=== PATIENT | male | born 1960 | race American Indian/Alaskan Native ===

== ENCOUNTER 2022-01-28 12:31 | Emergency (ER) | payer SELFPAY ==
--- NOTE | 2022-01-28 12:38 | Emergency Department Report ---
ED General Adult HPI - General Chief complaint: Altered Mental Status Stated complaint: ALTERED MENTAL STATUS Time Seen by Provider: 01/28/22 12:36 Source: patient, EMS (Verbal report received from emergency medical services. EMS documentation not available at time of chart dictation ), RN notes reviewed Mode of arrival: Stretcher Limitations: Altered Mental Status - History of Present Illness Initial comments: The patient was evaluated in the emergency department for symptoms described in the history of present illness. He/she was evaluated in the context of the global COVID-19 pandemic, which necessitated consideration that the patient might be at risk for infection with the virus that causes COVID-19. Institutional protocols and algorithms that pertain to the evaluation of patients at risk for COVID-19 are in a state of rapid change based on information released by regulatory bodies including the CDC and federal and state organizations. These policies and algorithms were followed during the patient's care in the emergency department. Please note that these policies, procedures and recommendations changed on a rapid basis. The patient is a 61-year-old gentleman with an unknown past medical history, who presents to the ER with EMS, with an EMS articulated complaint of altered mental status. EMS reports that they believe patient's last known well time is 10:00 AM. EMS reports normal Accu-Chek in the field, and unremarkable vital signs with exception of hypertension. They report that the patient is ambulatory with an unsteady gait. The patient is awake and follows commands. He is confused. He is not accompanied by friends or family at this time for collateral information or additional information. The patient is not able to describe the qualitative nature of his symptoms, exacerbating factors relieving factors or aggravating factors. The patient denies physical pain to myself -: This morning Severity scale (0 -10): 0 - Related Data Allergies Allergy/AdvReac Type Severity Reaction Status Date / Time No Known Allergies Allergy Unverified 01/28/22 12:33 ED Review of Systems ROS: Stated complaint: ALTERED MENTAL STATUS Other details as noted in HPI Comment: Unobtainable due to pts medical conditions ED Physical Exam - General Limitations: Altered Mental Status General appearance: alert, anxious, obese - Head Head exam: Present: atraumatic, normocephalic - Eye Eye exam: Present: normal appearance, PERRL, EOMI. Absent: nystagmus - ENT ENT exam: Present: normal exam, normal orophraynx, mucous membranes moist, normal external ear exam - Neck Neck exam: Present: normal inspection, full ROM. Absent: tenderness, meningismus - Respiratory Respiratory exam: Present: normal lung sounds bilaterally. Absent: respiratory distress, wheezes, rales, rhonchi, stridor, decreased breath sounds - Cardiovascular Cardiovascular Exam: Present: regular rate, normal rhythm, normal heart sounds. Absent: bradycardia, tachycardia, irregular rhythm, systolic murmur, diastolic murmur, rubs, gallop - GI/Abdominal GI/Abdominal exam: Present: soft. Absent: distended, tenderness, guarding, rebound, rigid, pulsatile mass - exam: Present: normal inspection External exam: Present: normal external exam - Extremities Exam Extremities exam: Present: normal inspection, full ROM, other (2+ pulses noted in the bilateral upper and lower extremities. There is no palpable cord. n egative Homans sign. Muscular compartments are soft. The pelvis is stable.). Absent: pedal edema, calf tenderness - Back Exam Back exam: Present: normal inspection. Absent: tenderness, CVA tenderness (R), CVA tenderness (L), paraspinal tenderness, vertebral tenderness - Neurological Exam Neurological exam: Present: altered (There is no facial droop. The tongue is midline. EOMI. Aphasic.), other (5 out of 5 strength bilateral upper extremities. 4 out of 5 strength bilateral lower extremities. Withdraws 4 extr emities in response to pinch and painful stimuli) - Psychiatric Psychiatric exam: Present: anxious - Skin Skin exam: Present: warm, dry, intact, normal color. Absent: rash ED Course Vital Signs 01/28/22 01/28/22 01/28/22 12:31 13:20 13:23 Temperature 98.5 F Pulse Rate 68 74 Respiratory 14 17 Rate Blood Pressure Blood Pressure 190/105 [Right] O2 Sat by Pulse 97 Oximetry O2 Sat by Pulse Oximetry [ Digit-Finger] 01/28/22 01/28/22 01/28/22 13:31 13:45 14:01 Temperature Pulse Rate 68 71 80 Respiratory 13 20 18 Rate Blood Pressure 197/99 189/95 179/90 Blood Pressure [Right] O2 Sat by Pulse 97 98 96 Oximetry O2 Sat by Pulse Oximetry [ Digit-Finger] 02/28/22 02/28/22 02/28/22 14:15 14:31 14:45 Temperature Pulse Rate 85 84 81 Respiratory 11 L 16 12 Rate Blood Pressure 123/66 134/68 143/73 Blood Pressure [Right] O2 Sat by Pulse 99 99 99 Oximetry O2 Sat by Pulse Oximetry [ Digit-Finger] 01/28/22 01/28/22 01/28/22 15:01 15:15 15:31 Temperature Pulse Rate 92 H 93 H 81 Respiratory 19 14 18 Rate Blood Pressure 142/70 127/76 121/74 Blood Pressure [Right] O2 Sat by Pulse 98 99 95 Oximetry O2 Sat by Pulse Oximetry [ Digit-Finger] 01/28/22 01/28/22 01/28/22 15:45 16:01 16:33 Temperature Pulse Rate 100 H 92 H Respiratory 19 18 Rate Blood Pressure 129/59 127/65 Blood Pressure [Right] O2 Sat by Pulse 96 97 Oximetry O2 Sat by Pulse 98 Oximetry [ Digit-Finger] - Reevaluation(s) Reevaluation #1: 01/28/22 13:17 Differential diagnosis, including not limited to: Stroke, ischemic versus hemorrhagic, pneumonia, UTI, thyroid derangement, electrolyte derangement, hypertensive emergency Assessment and plan: 61-year-old gentleman, with alteration in mental status, nonfocal weakness, found to have hypertensive emergency, with intracranial hemorrhage. The patient is not accompanied by friends or family at this time, so collateral information is limited. The patient is not a TPA candidate and TPA is contraindicated as he has an intracranial hemorrhage demonstrated on CT scan of the brain. Laboratory studies pending. I have transmitted CT scan to neurosurgeon on-call, Dr. Martins, to discuss the patient's case. If Dr. Martins/neurosurgery advises that this patient may be admitted here to this hospital, and he will be admitted to our ICU, under the care of our h ospitalist service, with critical care to follow in consultation. If the neurosurgeon advises transfer for services not available at this facility, we will reach out to our local tertiary care centers. Patient not certain if he takes any aspirin, antiplatelet therapy, or anticoagulants. Head of bed elevated, n.p.o., swallow screen, loaded with Keppra, start Cardene drip. 01/28/22 13:19 13 points Raymundo Coma Score E(4) V(3) M(6) [place] Coma Scale 01/28/22 13:42 Discussed the history, physical, CT scan findings and overall clinical impression with neurosurgeon on-call, Dr. Martins. He advises transfer for definitive services not available at this facility. Care team/guidance secretary to re ach out to [facility] center, so we may discuss with neurology critical care. I took verbal report from the interpreting radiologist on this patient's head CT. 01/28/22 14:05 Discussed the patient's history, physical, laboratory studies and imaging studies and clinical impression with neurology critical care weapons designer for [facility], Dr. Niki Montano He has accepted the patient as a transfer. He is in agreement with the plan of care. This patient has an emergent medical condition at this time which cannot be definitively managed at this hospital, as consulting neurosurgeon at our facility is recommending transfer. Furthermore, this facility does not possess the resources or ability to place EVD drain, should this patient decompensate. He will therefore be transferred to a tertiary care center. Patient is accompanied by significant other, but she is not to this patient. She does report that the patient is , but . The patient is not able to provide the phone number for his . His significant other is not able to provide phone number for . Patient has an emergency medical condition at this time which is time sensitive, and we are therefore administratively and emergently consenting this patient for transfer for definitive services not available at this facility At the moment, the patient is protecting his airway, in no acute distress, blood pressure improved on Cardene drip. The receiving neurology critical care physician advises that blood pressure systolic 140/150 mmHg would be acceptable 01/28/22 14:06 Reevaluation #2: 01/28/22 14:07 X-ray reviewed and appreciated. Patient not hypoxic. Antibiotics ordered empirically. Do not have the ability to perform rapid Covid testing at this facility. 01/28/22 15:10 Patient somewhat agitated. Midazolam ordered. Awaiting transportation he continues to protect his airway 01/28/22 15:54 Multiple phone calls were made by guidance secretary staff to multiple EMS ambulance units. Ambulances at this time are not available to transport this patient, secondary to not having available staff, or cars in the field. We will therefore order air transport, and guidance secretary reports that next available ambulance will present at 12:00 AM. Given time sensitive nature of this condition, and lack of available subspecialty services at this facility, lack of ability to definitively care for this patient, we will therefore transport patient as expediently as possible. 01/28/22 16:32 Patient received multiple doses of midazolam. Airflight is here to transport patient out, the patient agitated, pulling, not responding to de-escalation techniques. Flight nurse has requested intubation for airway protection. Patient is intubated by myself with 1 attempt, please see procedure note. There were no untoward complications. I updated the receiving neuro machine sand mixer. - Intubation Time Out Performed: Yes (Emergency situation) Sedative: Etomidate Mg Given: 20 Paralytic: Rocuronium (100 mg) Laryngoscope: fiberoptic video scope Size: 4 Assist Device Used: fiberoptic device ET Tube Size: 7.5 Tube Secured Depth (cm): 24 Tube Secured Location: lips Tube Placement Confirmation: visualized tube passing t, equal breath sounds bilat, no breath sounds over epi, confirmation by capnometr Patient Tolerated Procedure: well Intubation Complications: none - Pulse Oximetry Interpretation Digit-Finger Initial Pulse Oximetry Readin O2 Sat by Pulse Oximetry: 98 Actions Taken: none ED Medical Decision Making - Lab Data Result diagrams: 01/28/22 13:16 01/28/22 13:16 Vital Signs 01/28/22 12:31 Pulse Rate 68 Respiratory 14 Rate Blood Pressure 190/105 [Right] O2 Sat by Pulse 97 Oximetry Lab Results 01/28/22 01/28/22 Range/Units 12:39 13:16 WBC 7.1 (4.5-11.0) K/mm3 RBC 5.40 H (3.65-5.03) M/mm3 Hgb 15.5 H (11.8-15.2) gm/dl Hct 45.2 (35.5-45.6) % MCV 84 (84-94) fl MCH 29 (28-32) pg MCHC 34 (32-34) % RDW 13.2 (13.2-15.2) % Plt Count 190 (140-440) K/mm3 Lymph % (Auto) 10.3 L (13.4-35.0) % Coffee % (Auto) 4.6 (0.0-7.3) % Eos % (Auto) 0.3 (0.0-4.3) % Baso % (Auto) 0.7 (0.0-1.8) % Lymph # (Auto) 0.7 L (1.2-5.4) K/mm3 Coffee # (Auto) 0.3 (0.0-0.8) K/mm3 Eos # (Auto) 0.0 (0.0-0.4) K/mm3 Baso # (Auto) 0.1 (0.0-0.1) K/mm3 Seg Neutrophils % 84.1 H (40.0-70.0) % Seg Neutrophils # 6.0 (1.8-7.7) K/mm3 POC Glucose 109 H (70-105) mg/dL Lab Results 01/28/22 01/28/22 01/28/22 Range/Units 12:39 13:16 13:16 WBC 7.1 (4.5-11.0) K/mm3 RBC 5.40 H (3.65-5.03) M/mm3 Hgb 15.5 H (11.8-15.2) gm/dl Hct 45.2 (35.5-45.6) % MCV 84 (84-94) fl MCH 29 (28-32) pg MCHC 34 (32-34) % RDW 13.2 (13.2-15.2) % Plt Count 190 (140-440) K/mm3 Lymph % (Auto) 10.3 L (13.4-35.0) % Coffee % (Auto) 4.6 (0.0-7.3) % Eos % (Auto) 0.3 (0.0-4.3) % Baso % (Auto) 0.7 (0.0-1.8) % Lymph # (Auto) 0.7 L (1.2-5.4) K/mm3 Coffee # (Auto) 0.3 (0.0-0.8) K/mm3 Eos # (Auto) 0.0 (0.0-0.4) K/mm3 Baso # (Auto) 0.1 (0.0-0.1) K/mm3 Seg Neutrophils % 84.1 H (40.0-70.0) % Seg Neutrophils # 6.0 (1.8-7.7) K/mm3 PT 13.8 (12.2-14.9) Sec. INR 0.96 (0.87-1.13) APTT 34.8 (24.2-36.6) Sec. Thrombin Time 15.9 (15.1-19.6) Sec. Sodium (137-145) mmol/L Potassium (3.6-5.0) mmol/L Chloride (98-107) mmol/L Carbon Dioxide (22-30) mmol/L Anion Gap mmol/L BUN (9-20) mg/dL Creatinine (0.8-1.3) mg/dL Estimated GFR ml/min BUN/Creatinine Ratio % Glucose (75-100) mg/dL POC Glucose 109 H (70-105) mg/dL Lactic Acid (0.7-2.0) mmol/L Calcium (8.4-10.2) mg/dL Total Bilirubin (0.1-1.2) mg/dL AST (5-40) units/L ALT (7-56) units/L Alkaline Phosphatase (35-129) units/L Total Creatine Kinase (55-170) units/L CK-MB (CK-2) (0.0-4.0) ng/mL CK-MB (CK-2) Rel Index (0-4) Troponin T (0.00-0.029) ng/mL Total Protein (6.3-8.2) g/dL Albumin (3.9-5) g/dL Albumin/Globulin Ratio % TSH (0.270-4.200) mlU/mL Salicylates (2.8-20.0) mg/dL Acetaminophen (10.0-30.0) ug/mL Plasma/Serum Alcohol (0-0.07) % 01/28/22 01/28/22 01/28/22 Range/Units 13:16 13:16 13:16 WBC (4.5-11.0) K/mm3 RBC (3.65-5.03) M/mm3 Hgb (11.8-15.2) gm/dl Hct (35.5-45.6) % MCV (84-94) fl MCH (28-32) pg MCHC (32-34) % RDW (13.2-15.2) % Plt Count (140-440) K/mm3 Lymph % (Auto) (13.4-35.0) % Coffee % (Auto) (0.0-7.3) % Eos % (Auto) (0.0-4.3) % Baso % (Auto) (0.0-1.8) % Lymph # (Auto) (1.2-5.4) K/mm3 Coffee # (Auto) (0.0-0.8) K/mm3 Eos # (Auto) (0.0-0.4) K/mm3 Baso # (Auto) (0.0-0.1) K/mm3 Seg Neutrophils % (40.0-70.0) % Seg Neutrophils # (1.8-7.7) K/mm3 PT (12.2-14.9) Sec. INR (0.87-1.13) APTT (24.2-36.6) Sec. Thrombin Time (15.1-19.6) Sec. Sodium 138 (137-145) mmol/L Potassium 3.7 (3.6-5.0) mmol/L Chloride 98.5 (98-107) mmol/L Carbon Dioxide 26 (22-30) mmol/L Anion Gap 17 mmol/L BUN 13 (9-20) mg/dL Creatinine 1.0 (0.8-1.3) mg/dL Estimated GFR > 60 ml/min BUN/Creatinine Ratio 13 % Glucose 120 H (75-100) mg/dL POC Glucose (70-105) mg/dL Lactic Acid 1.30 (0.7-2.0) mmol/L Calcium 9.9 (8.4-10.2) mg/dL Total Bilirubin 0.40 (0.1-1.2) mg/dL AST 16 (5-40) units/L ALT 15 (7-56) units/L Alkaline Phosphatase 128 (35-129) units/L Total Creatine Kinase 194 H (55-170) units/L CK-MB (CK-2) 5.1 H (0.0-4.0) ng/mL CK-MB (CK-2) Rel Index 2.6 (0-4) Troponin T < 0.010 (0.00-0.029) ng/mL Total Protein 8.4 H (6.3-8.2) g/dL Albumin 4.5 (3.9-5) g/dL Albumin/Globulin Ratio 1.2 % TSH 0.282 (0.270-4.200) mlU/mL Salicylates (2.8-20.0) mg/dL Acetaminophen (10.0-30.0) ug/mL Plasma/Serum Alcohol (0-0.07) % 01/28/22 01/28/22 01/28/22 Range/Units 13:16 13:16 13:16 WBC (4.5-11.0) K/mm3 RBC (3.65-5.03) M/mm3 Hgb (11.8-15.2) gm/dl Hct (35.5-45.6) % MCV (84-94) fl MCH (28-32) pg MCHC (32-34) % RDW (13.2-15.2) % Plt Count (140-440) K/mm3 Lymph % (Auto) (13.4-35.0) % Coffee % (Auto) (0.0-7.3) % Eos % (Auto) (0.0-4.3) % Baso % (Auto) (0.0-1.8) % Lymph # (Auto) (1.2-5.4) K/mm3 Coffee # (Auto) (0.0-0.8) K/mm3 Eos # (Auto) (0.0-0.4) K/mm3 Baso # (Auto) (0.0-0.1) K/mm3 Seg Neutrophils % (40.0-70.0) % Seg Neutrophils # (1.8-7.7) K/mm3 PT (12.2-14.9) Sec. INR (0.87-1.13) APTT (24.2-36.6) Sec. Thrombin Time (15.1-19.6) Sec. Sodium (137-145) mmol/L Potassium (3.6-5.0) mmol/L Chloride (98-107) mmol/L Carbon Dioxide (22-30) mmol/L Anion Gap mmol/L BUN (9-20) mg/dL Creatinine (0.8-1.3) mg/dL Estimated GFR ml/min BUN/Creatinine Ratio % Glucose (75-100) mg/dL POC Glucose (70-105) mg/dL Lactic Acid (0.7-2.0) mmol/L Calcium (8.4-10.2) mg/dL Total Bilirubin (0.1-1.2) mg/dL AST (5-40) units/L ALT (7-56) units/L Alkaline Phosphatase (35-129) units/L Total Creatine Kinase (55-170) units/L CK-MB (CK-2) (0.0-4.0) ng/mL CK-MB (CK-2) Rel Index (0-4) Troponin T (0.00-0.029) ng/mL Total Protein (6.3-8.2) g/dL Albumin (3.9-5) g/dL Albumin/Globulin Ratio % TSH (0.270-4.200) mlU/mL Salicylates 1.3 L (2.8-20.0) mg/dL Acetaminophen 5.0 L (10.0-30.0) ug/mL Plasma/Serum Alcohol < 0.01 (0-0.07) % - Radiology Data Radiology results: report reviewed, image reviewed interpreted by me: Noncontrast CT scan of the brain hemorrhage ICH, left temporal region (6.5x4x3.5 cm) . CT head/brain wo con INDICATION / CLINICAL INFORMATION: 61 years Male; Stroke symptoms. TECHNIQUE: Routine CT head without contrast. All CT scans at this location are performed using CT dose reduction for ALARA by means of automated exposure control. COMPARISON: None. FINDINGS: BRAIN / INTRACRANIAL CONTENTS: Large area of parenchymal hemorrhage in the right temporal lobe, measuring approximately 7 cm AP by 3.9 cm transversely by 2.9 cm craniocaudally. Mixed areas of hemorrhage seen with more acute blood products suggested anteriorly. There is mild subdural extension on the left, which extends towards the sylvian fissure and along the tentorium cerebelli. Some component of surrounding vasogenic edema noted. These findings result in approximately 6 mm of [id number] midline shift at the level of the septum pellucidum and the frontal horns of the lateral ventricles. There is mass effect on the temporal horn of the left lateral ventricle. Basal cisterns remain well-visualized, although the uncus on the left projects minimally into the suprasellar cistern. Otherwise, no acute hemorrhage, hydrocephalus, or acute, large territorial infarct. No signs of significant atrophy or chronic infarct. No significant white matter abnormality seen. CRANIOCERVICAL JUNCTION: No significant abnormality. ORBITS: No significant abnormality of visualized orbits. SINUSES / MASTOIDS: Mucous retention cyst seen in the left maxillary antrum. ADDITIONAL FINDINGS: None. I MPRESSION: 1. Large parenchymal hemorrhage in the left temporal lobe as described above, with minimal extension into the subdural space on the left. CRITICAL RESULT: Exam Completed (DISTRIBUTION FIELD ENGINEER/CDT): 01/28/2022 1227 PM Exam Reviewed (DISTRIBUTION FIELD ENGINEER/CDT): 12:27 PM Time of Communication (DISTRIBUTION FIELD ENGINEER/CDT): 12:35 PM Licensed Practitioner Receiving Report: Dr. Larry Information confirmed: Yes. ==== Signer Name: Jean-Pierre Bingham MD, III Signed: 01/28/2022 12:42 PM Workstation Name: [id number] CHEST 1 VIEW INDICATION / CLINICAL INFORMATION: ams. COMPARISON: None available. FINDINGS: SUPPORT DEVICES: None. HEART / MEDIASTINUM: No significant abnormality. LUNGS / PLEURA: Patchy perihilar and bibasilar airspace opacities. No focal consolidation. No significant effusion. No pneumothorax. ADDITIONAL FINDINGS: No significant additional findings. IMPRESSION: 1. Perihilar and bibasilar airspace disease, suggesting multifocal pneumonia. Signer Name: Ricardo Ivy MD Signed: 01/28/2022 12:46 PM Workstation Name: [id number] vCT angio head INDICATION / CLINICAL INFORMATION: 61 years Male; stroke sx. TECHNIQUE: Thin cut axial images obtained through the head during IV bolus contrast administration. Sagittal, coronal, and 3 plane MIP reconstructions performed by the technologist. NASCET type criteria used evaluate stenoses. Automated exposure control utilized for radiation reduction purposes. . COMPARISON: CT head-01/28/2022. FINDINGS: INTERNAL CAROTID ARTERIES: No significant narrowing appreciated. VERTEBROBASILAR SYSTEM: No significant narrowing appreciated. DISTAL BRANCHES: Distal branches of the anterior posterior cerebral arteries are fairly symmetric in appearance and number. Large hematoma is seen in the left temporal lobe, described on report from today's CT of the head. No definitive signs of underlying cause for patient's parenchymal hemorrhage appreciated. No definitive signs of vessel occlusion. Certainly, mass effect from the hemorrhage could cause obscuration of an underlying lesion or small vascular malformation. Short-term follow-up exam may be of benefit. Right MCA territory is normal in appearance. ANEURYSM: None identified. ADDITIONAL FINDINGS: Remainder of the surrounding soft tissues are grossly normal. IMPRESSION: No significant narrowing or lesion appreciated on this CTA of the head. Signer Name: Jean-Pierre Bingham MD, III Signed: 01/28/2022 12:50 PM Workstation Name: [id number] CT angio neck INDICATION / CLINICAL INFORMATION: 61 years Male; stroke sx. TECHNIQUE: Thin cut axial images obtained through the head during IV bolus contrast administration. Sagittal, coronal, and 3 plane MIP reconstructions performed by the technologist. NASCET type criteria used evaluate stenoses. All CT scans at this location are performed using CT dose reduction for ALARA by means of automated exposure control. . COMPARISON: None available. FINDINGS: ARCH: Bovine arch configuration noted. CAROTID ARTERIES: The visualized common and internal carotid arteries are widely patent. Minimal atherosclerotic disease noted. VERTEBRAL ARTERIES: Slight right dominant vertebral system seen. No significant stenosis appreciated. ADDITIONAL FINDINGS: Disc space narrowing seen at C5-6 and C6-7. There is minimal scoliosis of the cervicothoracic region, which may be related to patient positioning. Moderate osseous foraminal narrowing is seen on the left at C5-6 and C6-7 from uncinate hypertrophy. Minimal disc disease seen at various levels. No definitive signs of significant canal stenosis appreciated. Large mucous retention cyst/polyp seen in the left maxillary antrum. IMPRESSION: No significant stenosis appreciated on this CTA of the neck. Signer Name: Jean-Pierre Bingham MD, III Signed: 01/28/2022 12:54 PM Workstation Name: [id number] CHEST 1 VIEW 01/28/2022 4:27 PM INDICATION / CLINICAL INFORMATION: ETT placement. COMPARISON: 01/08/22 1:32 PM FINDINGS: SUPPORT DEVICES: Endotracheal tube has been placed with the tip 5.7 cm above the keily. HEART / MEDIASTINUM: Stable. Bilateral hilar fullness could relate to pulmonary arterial enlargement. LUNGS / PLEURA: Mild perihilar opacities are unchanged. No pneumothorax. ADDITIONAL FINDINGS: No significant additional findings. IMPRESSION: 1. Endotracheal tube in expected position. Signer Name: Ez Cornejo MD Signed: 01/28/2022 3:44 PM Workstation Name: [facility] Critical Care Time: Yes Critical care time in (mins) excluding proc time.: 74 Critical care attestation.: If time is entered above; I have spent that time in minutes in the direct care of this critically ill patient, excluding procedure time. ED Disposition Clinical Impression: Intracranial hemorrhage, Acute encephalopathy, Hypertensive emergency, Pulmonary infiltrate Disposition: 02 SHORT TERM HOSPITAL Is pt being admited?: No Does the pt Need Aspirin: No Condition: Critical Instructions: Hypertension (ED) Referrals: PRIMARY CARE, [Primary Care Provider] - 3-5 Days
--- NOTE | 2022-01-28 13:10 | Consultation ---
History of Present Illness History of present illness: [facility] Consult Note # Demographics Consult Type: Acute Stroke Level 1 (0-4.5 hrs) Patient Location: Emergency Room First Name: Marco Antonio Last Name: Johnnie Date of : 1960 Age: 61 Gender: Male Facility: [facility] Time of Initial Page ( Time): 01/28/2022, 12:38 Time of Return Call ( Time): 01/28/2022, 12:50 # HPI Chief Complaint: altered mental state History: 61M presents with AMS. 190/105. Fingerstick 109. LKWT 10 AM # Scores Time of exam and NIHSS (): 01/28/2022, 13:00 Level of Consciousness 1a: [0] = Alert; keenly responsive LOC Questions 1b: [2] = Answers neither correctly LOC Commands 1c: [2] = Performs neither correctly Best Gaze 2: [0] = Normal Visual 3: [2] = Complete hemianopia Facial Palsy 4: [0] = Normal symmetrical movements Motor Arm Left 5a: [0] = No drift Motor Arm Right 5b: [0] = No drift Motor Leg Left 6a: [0] = No drift Motor Leg Right 6b: [1] = Drift Limb Ataxia 7: [0] = Absent Sensory 8: [0] = Normal Best Language 9: [2] = Severe aphasia Dysarthria 10: [0] = Normal Extinction and Inattention 11: [1] = Visual, tactile, auditory, spatial, or personal inattention NIHSS Total: 10 ICH Score: [0] = GCS 13-15 [0] = age < 80 [1] = ICH vol >= 30 mL [0] = no intravent hemorrhage [0] = origin of hemorrhage NOT infratentorial ICH Score total: 1 # Data Time Head CT personally read by me ( Time): 01/28/2022, 12:[address]: hemorrhage ICH, left temporal region (6.5x4x3.5 cm) # Assessment Impression: Intracerebral hemorrhage # Plan Thrombolytic/Intervention: NOT IV Thrombolysis or IA Intervention candidate Thrombolytic Exclusion (< 3 hour window): ICH Intraarterial Exclusion: ICH Target Blood Pressure: SBP < 160 DVT Prophylaxis: SCD contraindication Other: consult neurosurgery Additional Recommendations: q1hr neurochecks/ICU admission HOB > 30 degrees Repeat CTH in 4-6 hours Admission vs transfer as per neurosurgical evaluation Disposition: admit # Logistics Telemedicine: Interactive 2 way audio and visual telecommunication technology was utilized during this visit Electronically signed at 01/28/2022 13:10 (Eastern Time) by Andre Durant MD Medications and Allergies Allergies Allergy/AdvReac Type Severity Reaction Status Date / Time No Known Allergies Allergy Unverified 01/28/22 12:33 Physical Examination - Vital Signs Vital Signs: Vital Signs Pulse Resp BP Pulse Ox 68 14 190/105 97 01/28/22 12:31 01/28/22 12:31 01/28/22 12:31 01/28/22 12:31 Results - Laboratory Findings Abnormal Lab Findings: Abnormal Labs 01/28/22 12:39 POC Glucose 109 H
[2022-01-28] MEDS ORDERED: levETIRAcetam 1000 MG/NS 0.75% 1,000 MG/100 ML BAG IV ONE (13:11)
[2022-01-28] MEDS ORDERED: MIDAZOLAM 2 MG/2 ML INJ IV ONE ×2 (13:16→15:10)
[2022-01-28 13:35] LABS: Basophils # (Auto) 0.1 K/mm3 (0.0-0.1); Basophils % (Auto) 0.7 % (0.0-1.8); Eosinophils % (Auto) 0.3 % (0.0-4.3); Hematocrit 45.2 % (35.5-45.6); Hemoglobin 15.5 gm/dl (11.8-15.2); Lymphocytes # (Auto) 0.7 K/mm3 (1.2-5.4); Lymphocytes % (Auto) 10.3 % (13.4-35.0); Mean Corpuscular HGB Conc 34 % (32-34); Mean Corpuscular Volume 84 fl (84-94); Monocytes # (Auto) 0.3 K/mm3 (0.0-0.8); Monocytes % (Auto) 4.6 % (0.0-7.3); Platelet Count 190 K/mm3 (140-440); Red Cell Distribution Width 13.2 % (13.2-15.2)
[2022-01-28] MEDS ORDERED: niCARdipine DRIP 40 MG/200 ML BAG ONE ×2 (13:38→16:25)
--- NOTE | 2022-01-28 13:46 | Cat Scan Report ---
. CT head/brain wo con INDICATION / CLINICAL INFORMATION: 61 years Male; Stroke symptoms. TECHNIQUE: Routine CT head without contrast. All CT scans at this location are performed using CT dos e reduction for ALARA by means of automated exposure control. COMPARISON: None. FINDINGS: BRAIN / INTRACRANIAL CONTENTS: Large area of parenchymal hemorrhage in the right temporal lobe, measu ring approximately 7 cm AP by 3.9 cm transversely by 2.9 cm craniocaudally. Mixed areas of hemorrhage seen with more acute blood products suggested anteriorly. There is mild subdural extension on the le ft, which extends towards the sylvian fissure and along the tentorium cerebelli. Some component of [place] rrounding vasogenic edema noted. These findings result in approximately 6 mm of [id number] midline shift at the level of the septum pellucidum and the frontal horns of the lateral ventricles. There is mass effect on the temporal hor n of the left lateral ventricle. Basal cisterns remain well-visualized, although the uncus on the lef t projects minimally into the suprasellar cistern. Otherwise, no acute hemorrhage, hydrocephalus, or acute, large territorial infarct. No signs of sign ificant atrophy or chronic infarct. No significant white matter abnormality seen. CRANIOCERVICAL JUNCTION: No significant abnormality. ORBITS: No significant abnormality of visualized orbits. SINUSES / MASTOIDS: Mucous retention cyst seen in the left maxillary antrum. ADDITIONAL FINDINGS: None. IMPRESSION: 1. Large parenchymal hemorrhage in the left temporal lobe as described above, with minimal extension into the subdural space on the left. CRITICAL RESULT: Exam Completed (FAMILY MEDICINE PHYSICIAN ASSISTANT/CDT): 01/28/2022 1227 PM Exam Reviewed (FAMILY MEDICINE PHYSICIAN ASSISTANT/CDT): 12:27 PM Time of Communication (FAMILY MEDICINE PHYSICIAN ASSISTANT/CDT): 12:35 PM Licensed Practitioner Receiving Report: Dr. Larry Information confirmed: Yes. Signer Name: Jean-Pierre Bingham MD, III Signed: 01/28/2022 1:42 PM Workstation Name: [id number]
--- NOTE | 2022-01-28 13:50 | XRay Report ---
CHEST 1 VIEW INDICATION / CLINICAL INFORMATION: ams. COMPARISON: None available. FINDINGS: SUPPORT DEVICES: None. HEART / MEDIASTINUM: No significant abnormality. LUNGS / PLEURA: Patchy perihilar and bibasilar airspace opacities. No focal consolidation. No signifi cant effusion. No pneumothorax. ADDITIONAL FINDINGS: No significant additional findings. IMPRESSION: 1. Perihilar and bibasilar airspace disease, suggesting multifocal pneumonia. Signer Name: Ricardo Ivy MD Signed: 01/28/2022 1:46 PM Workstation Name: [email or web address]
[2022-01-28 13:52] LABS: Creatine Kinase MB 5.1 ng/mL (0.0-4.0)
[2022-01-28 13:53] LABS: Alanine Aminotransferase 15 units/L (7-56); Albumin 4.5 g/dL (3.9-5); BUN/Creatinine Ratio 13; Blood Urea Nitrogen 13 mg/dL (9-20); Calcium 9.9 mg/dL (8.4-10.2); Hemolysis Index 5
[2022-01-28] MEDS ORDERED: cefTRIAXone/NS 1 GM/50 ML 1 GM/50 ML BAG IV ONE (13:53)
[2022-01-28] MEDS ORDERED: AZITHROMYCIN/NS 500 MG/250 ML 500 MG/250 ML BAG IV ONE (13:53)
--- NOTE | 2022-01-28 13:55 | Cat Scan Report ---
CT angio head INDICATION / CLINICAL INFORMATION: 61 years Male; stroke sx. TECHNIQUE: Thin cut axial images obtained through the head during IV bolus contrast administration. S agittal, coronal, and 3 plane MIP reconstructions performed by the technologist. NASCET type criteria used evaluate stenoses. Automated exposure control utilized for radiation reduction purposes. . COMPARISON: CT head-01/28/2022. FINDINGS: INTERNAL CAROTID ARTERIES: No significant narrowing appreciated. VERTEBROBASILAR SYSTEM: No significant narrowing appreciated. DISTAL BRANCHES: Distal branches of the anterior posterior cerebral arteries are fairly symmetric in appearance and number. Large hematoma is seen in the left temporal lobe, described on report from today's CT of the head. No definitive signs of underlying cause for patient's parenchymal hemorrhage appreciated. No definitive signs of vessel occlusion. Certainly, mass effect from the hemorrhage could cause obscuration of an underlying lesion or small vascular malformation. Short-term follow-up exam may be of benefit. Right MCA territory is normal in appearance. ANEURYSM: None identified. ADDITIONAL FINDINGS: Remainder of the surrounding soft tissues are grossly normal. IMPRESSION: No significant narrowing or lesion appreciated on this CTA of the head. Signer Name: Jean-Pierre Bingham MD, III Signed: 01/28/2022 1:50 PM Workstation Name: [id number]
[2022-01-28 13:56] LABS: INR 0.96 (0.87-1.13)
[2022-01-28 13:57] LABS: Partial Thromboplastin Time 34.8 Sec. (24.2-36.6); Thrombin Time 15.9 Sec. (15.1-19.6)
--- NOTE | 2022-01-28 13:58 | Cat Scan Report ---
CT angio neck INDICATION / CLINICAL INFORMATION: 61 years Male; stroke sx. TECHNIQUE: Thin cut axial images obtained through the head during IV bolus contrast administration. S agittal, coronal, and 3 plane MIP reconstructions performed by the technologist. NASCET type criteria used evaluate stenoses. All CT scans at this location are performed using CT dose reduction for ALAR A by means of automated exposure control. . COMPARISON: None available. FINDINGS: ARCH: Bovine arch configuration noted. CAROTID ARTERIES: The visualized common and internal carotid arteries are widely patent. Minimal athe rosclerotic disease noted. VERTEBRAL ARTERIES: Slight right dominant vertebral system seen. No significant stenosis appreciated. ADDITIONAL FINDINGS: Disc space narrowing seen at C5-6 and C6-7. There is minimal scoliosis of the ce rvicothoracic region, which may be related to patient positioning. Moderate osseous foraminal narrowi ng is seen on the left at C5-6 and C6-7 from uncinate hypertrophy. Minimal disc disease seen at vario us levels. No definitive signs of significant canal stenosis appreciated. Large mucous retention cyst/polyp seen in the left maxillary antrum. IMPRESSION: No significant stenosis appreciated on this CTA of the neck. Signer Name: Jean-Pierre Bingham MD, III Signed: 01/28/2022 1:54 PM Workstation Name: [id number]
[2022-01-28] MEDS ORDERED: niCARdipine 50 MG in SODIUM CHLORIDE 0.9% 250ML 230 ML IV SCH (14:00)
[2022-01-28] MEDS ORDERED: levETIRAcetam 1,000 MG in DEXTROSE 5% IN WATER 100 ML IV SCH (14:00)
[2022-01-28 15:32] LABS: Bilirubin,Urine NEG (Negative); Blood,Urine SM (Negative); Color,Urine Colorless (Yellow); Protein,Urine <15 mg/dL mg/dL (Negative); RBC,Urine < 1.0 /HPF (0.0-6.0); Urobilinogen,Urine < 2.0 mg/dL (<2.0); WBC,Urine < 1.0 /HPF (0.0-6.0)
[2022-01-28] MEDS ORDERED: MIDAZOLAM 2 MG/2 ML INJ IV PRN (15:55)
[2022-01-28 16:04] VITALS: BP 127/65
[2022-01-28] MEDS ORDERED: ETOMIDATE 20 MG/10 ML INJ IV ONE (16:17)
[2022-01-28] MEDS ORDERED: ROCURONIUM 50 MG/5 ML INJ IV ONE ×2 (16:18→16:21)
[2022-01-28] MEDS ORDERED: LIDOCAINE PF 100 MG/5 ML (CARDIAC SYRINGE) IV ONE (16:18)
[2022-01-28] MEDS ORDERED: LIP THERAPY VASELINE TP PRN (16:30)
[2022-01-28] MEDS ORDERED: MINERAL OIL/PETROLATUM, WHITE OPHTH OINT 3.5 GM OU PRN (16:30)
--- NOTE | 2022-01-28 16:48 | XRay Report ---
CHEST 1 VIEW 01/28/2022 4:27 PM INDICATION / CLINICAL INFORMATION: ETT placement. COMPARISON: 01/08/22 1:32 PM FINDINGS: SUPPORT DEVICES: Endotracheal tube has been placed with the tip 5.7 cm above the keily. HEART / MEDIASTINUM: Stable. Bilateral hilar fullness could relate to pulmonary arterial enlargement. LUNGS / PLEURA: Mild perihilar opacities are unchanged. No pneumothorax. ADDITIONAL FINDINGS: No significant additional findings. IMPRESSION: 1. Endotracheal tube in expected position. Signer Name: Ez Cornejo MD Signed: 01/28/2022 4:44 PM Workstation Name: [email or web address]
[2022-01-28] MEDS ORDERED: SENNOSIDES/DOCUSATE SODIUM 8.6/50 MG TAB FEEDTUBE SCH (22:00)
[2022-01-28] MEDS ORDERED: FAMOTIDINE 20 MG/2 ML INJ IV SCH (22:00)
== END 2022-01-28 17:12 | disposition short-term general hospital (02) ==
LOC: ED 12:31
DX: I62.9 Nontraumatic intracranial hemorrhage, unspecified (principal); G93.40 Encephalopathy, unspecified; R91.8 Other nonspecific abnormal finding of lung field
CPT/HCPCS: 31500; 36415; 70450; 70496; 70498; 71045; 80053; 81001; 82140; 82550; 82553; 82962; 84443; 84484; 85025; 85610; 85670; 85730; 96365; 96366; 96368; 99291; J0456; J0696; J1953; J2001; J2250; J2704; J3490; J7050; J7060; Q9967; 80320; 96375; G0480